=== PATIENT | female | born 1960 | race Caucasian/White ===

== ENCOUNTER → 2020-07-11 | Outpatient (CLI) | payer SELFPAY ==
[~2020-07-11] MED LIST: AMBI10TA PO; E-Z-GAS II EFFERVESCENT PACKET (SODIUM BICARB./CITRIC ACID/SIMETHICONE) As Ordered ONE; E-Z-HD 98% w/w 340GM SUSP BTL As Ordered ONE; E-Z-PAQUE 96% w/w SUSP 176GM BTL As Ordered ONE; LORA1TAB4 PO; LORA2TAB14 PO; PANT40TA29 PO; PREV1CAP PO; SERO200T PO; VITMTA PO
--- NOTE | 2020-07-26 08:58 | REP ---
UPPER GI AIR CONTRAST: The procedure was performed under the direct supervision of Dr. Grigsby. The images are reviewed with Dr. Grigsby. The social media designer film shows no organomegaly or pathologic masses. The intestinal gas pattern is nonspecific. Liquid barium and gas producing granules were given in the erect position as well as liquid barium in the prone oblique position in order to perform a double contrast upper GI examination. The oral and pharyngeal stages of deglutition are unremarkable. During esophageal transport there are tertiary waves demonstrated. In the distal esophagus there is tapered narrowing with dilation of the esophagus proximally. The mucosa is smooth with no mass identified. This may represent achalasia. There is affixed hiatal hernia. There is gastroesophageal reflux demonstrated to below the level of the vivi. The stomach cooley are normally outlined. The rugal folds are smooth and regular. There is no gastritis, neoplasm, or ulcer disease. The duodenal cooley are normally outlined. The mucosal folds are smooth and regular. There is no duodenitis, pancreatitis, peptic ulcer disease or neoplasm. The visualized portion of the proximal small bowel appears normal in course and caliber. IMPRESSION: 1. There is tapered narrowing in the distal esophagus with proximal dilation of the esophagus. The mucosa is smooth and there is no mass identified. This may represent achalasia. 2. There is a fixed hiatal hernia. There is gastroesophageal reflux demonstrated to below the level of the vivi. 3. 1.8 minutes of fluoroscopy time was utilized for this procedure. [facility]
== END ==
LOC: M RAD 08:35
PROVIDERS: ATTEND Surgery
DX: R13.10 Dysphagia, unspecified (principal); K44.9 Diaphragmatic hernia without obstruction or gangrene; K21.9 Gastro-esophageal reflux disease without esophagitis

== ENCOUNTER → 2020-07-12 | Outpatient (CLI) | payer OTHER, SELFPAY ==
[~2020-07-12] MED LIST changes: -E-Z-GAS II EFFERVESCENT PACKET (SODIUM BICARB./CITRIC ACID/SIMETHICONE) As Ordered ONE; -E-Z-HD 98% w/w 340GM SUSP BTL As Ordered ONE; -E-Z-PAQUE 96% w/w SUSP 176GM BTL As Ordered ONE
== END ==
LOC: M LABSMTC 10:32
PROVIDERS: ATTEND Anesthesiology
DX: Z01.812 Encounter for preprocedural laboratory examination (principal); Z20.828 Contact with and (suspected) exposure to other viral communicable diseases
CPT/HCPCS: C9803; U0003

== ENCOUNTER 2020-07-17 08:06 | Day surgery (SDC) | payer SELFPAY ==
[~2020-07-17] VITALS: Ht 154.9 cm; Wt 64.5 kg
[~2020-07-17 08:06] MED LIST changes: +NS 1,000 ML IV ONE
[2020-07-17] MEDS ORDERED: propofoL 200 MG/20 ML VIAL As Ordered ONE (08:20)
[2020-07-17] MEDS ORDERED: LIDOCAINE 2% 100MG/5ML SDV (FOR ANES.) As Ordered ONE (08:20)
[2020-07-17] MEDS ORDERED: fentaNYL 100 MCG/2 ML INJECTION (J3010) As Ordered ONE (08:22)
--- NOTE | 2020-07-17 09:24 | ROOR ---
Patient Name: Gina Dow Procedure Date: 07/17/2020 8:56 AM Date of : 1960 Age: 60 Room: [facility] Gender: Female Note Status: Finalized Procedure: Upper GI endoscopy Indications: Esophageal dysphagia Providers: Yung Rai MD Referring MD: ROBIN JOSE MD Requesting Provider: Medicines: Monitored Anesthesia Care Complications: No immediate complications. Procedure: Pre-Anesthesia Assessment: - Prior to the procedure, a History and Physical was performed, and patient medications and allergies were reviewed. The patient is competent. The risks and benefits of the procedure and the sedation options and risks were discussed with the patient. All questions were answered and informed consent was obtained. Patient identification and proposed procedure were verified by the physician, the nurse and the anesthesiologist in the endoscopy suite. Mental Status Examination: alert and oriented. Airway Examination: normal oropharyngeal airway and neck mobility. Respiratory Examination: clear to auscultation. CV Examination: normal. Prophylactic Antibiotics: The patient does not require prophylactic antibiotics. Prior Anticoagulants: The patient has taken no previous anticoagulant or antiplatelet agents. ASA Grade Assessment: II - A patient with mild systemic disease. After reviewing the risks and benefits, the patient was deemed in satisfactory condition to undergo the procedure. The anesthesia plan was to use monitored anesthesia care (MAC). Immediately prior to administration of medications, the patient was re-assessed for adequacy to receive sedatives. The heart rate, respiratory rate, oxygen saturations, blood pressure, adequacy of pulmonary ventilation, and response to care were monitored throughout the procedure. The physical status of the patient was re-assessed after the procedure. The Endoscope was introduced through the mouth, and advanced to the second part of duodenum. The upper GI endoscopy was technically difficult and complex due to abnormal anatomy. The patient tolerated the procedure well. Findings: The middle third of the esophagus and lower third of the esophagus were mildly tortuous. One extrinsic moderate (circumferential scarring or stenosis; an endoscope may pass) stenosis was found 34 to 38 cm from the incisors. The stenosis was traversed. A TTS dilator was passed through the scope. Dilation with a 15-16.5-18 mm balloon dilator was performed to 18 mm. The dilation site was examined following endoscope reinsertion and showed mild mucosal disruption. Estimated blood loss was minimal. A small type-III paraesophageal hernia was found. The hiatal narrowing was 38 cm from the incisors. The Z-line was 38 cm from the incisors. Striped erythematous mucosa was found in the gastric antrum. The duodenal bulb, first portion of the duodenum and second portion of the duodenum were normal. Impression: - Tortuous esophagus. - Extrinsic narrowing of the esophagus. Dilated. - Small paraesophageal hernia. - Erythematous mucosa in the antrum. - Normal duodenal bulb, first portion of the duodenum and second portion of the duodenum. - No specimens collected. Recommendation: - Discharge patient to home (ambulatory). - Use Protonix (pantoprazole) 40 mg PO daily. Yung Rai MD Yung Rai MD 07/17/2020 9:23:43 AM Electronically signed by Yung Rai MD Number of Addenda: 0 Note Initiated On: 07/17/2020 8:56 AM Estimated Blood Loss: Estimated blood loss was minimal.
[2020-07-17 09:49] VITALS: BP 125/61
== END 2020-07-17 09:50 | disposition home or self-care (01) ==
LOC: M OPP 08:06
PROVIDERS: ATTEND Surgery
DX: Q39.9 Congenital malformation of esophagus, unspecified (principal); K22.2 Esophageal obstruction; K44.9 Diaphragmatic hernia without obstruction or gangrene; K31.89 Other diseases of stomach and duodenum; R13.14 Dysphagia, pharyngoesophageal phase; F17.210 Nicotine dependence, cigarettes, uncomplicated; Z79.899 Other long term (current) drug therapy
CPT/HCPCS: 43249; J3010

== ENCOUNTER → 2020-09-13 | Outpatient (CLI) | payer SELFPAY ==
[~2020-09-13] MED LIST changes: -NS 1,000 ML IV ONE
== END ==
LOC: M LABSMTC 12:52
PROVIDERS: ATTEND Pediatrics
DX: Z20.828 Contact with and (suspected) exposure to other viral communicable diseases (principal)